=== PATIENT | female | born 1955 | race Caucasian/White ===

== ENCOUNTER 2016-11-13 13:01 | Emergency (ER) | payer OTHER ==
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
[2016-11-13 23:21] VITALS: BP 129/73
== END 2016-11-13 18:18 | disposition home or self-care (01) ==
LOC: ER 13:01
DX: B37.0 Candidal stomatitis (principal); M79.7 Fibromyalgia; F31.9 Bipolar disorder, unspecified; F17.210 Nicotine dependence, cigarettes, uncomplicated; Z90.710 Acquired absence of both cervix and uterus; T21.24XA Burn of second degree of lower back, initial encounter; X15.8XXA Contact with other hot household appliances, initial encounter

== ENCOUNTER 2017-01-06 14:17 | Emergency (ER) | payer OTHER ==
[2017-01-06] MEDS ORDERED: KETOROLAC TROMETHAMINE 30 MG/ML VIAL ONE (14:52)
[2017-01-06] MEDS ORDERED: KETOROLAC TROMETHAMINE 30 MG/ML VIAL IM ONE (14:53)
--- OUTSIDE RECORDS SUMMARY | 2017-01-06 15:52 | XMS REPORT | Continuity of Care Document ---
:1955 Author Organization [facility] ([facility]) Address [place] [place] [address] Phone [phone] Care Team Providers Name Role Phone Blue Acevedo Primary Care Provider [phone] Source Comments This disclosure is being made pursuant to the Care Everywhere program, applicable federal and state laws, and may not contain all informaitonavailable regarding this patient.[facility] ([facility]) Active Allergies and Adverse Reactions Allergen Noted Date Severity Reactions Comments Azithromycin 05/19/2012 Stomach Pain,OTHER,Rash Unable to sleep Methadone 05/19/2012 OTHER Unable to sleep Metronidazole 05/19/2012 Stomach Pain,OTHER "ache everywhere" Naproxen Loss of Consciousness,Seizure,Hy potension,Urticaria (Hives) Nortriptyline 05/19/2012 OTHER Unable to sleep Other Agent Urticaria environmental outdoor (Hives),Rhinorrhea allergies, "jg"- patient unsure of what medication it is Current Medications Prescription Sig. Disp. Refills Start Date End Date Status DULoxetine (CYMBALTA) Take 60 mg by Active 60 mg capsule mouth daily. pantoprazole 40 mg EC Take 40 mg by Active tablet mouth daily. topiramate 25 mg tablet Take 25 mg by Active mouth 2 times daily. oxybutynin 5 mg tablet Take 5 mg by Active mouth 2 times daily. metoclopramide 5 mg Take 5 mg by Active tablet mouth 2 times daily. tiZANidine 4 mg tablet Take 4 mg by Active mouth daily. busPIRone 7.5 mg tablet Take 1 tablet 30 tablet 11 12/28/2015 Active (7.5 mg total) by mouth 2 times daily. atorvastatin 10 mg Take 2 tablets 30 tablet 12/28/2015 Active tablet (20 mg total) by mouth daily. amitriptyline 50 mg Take 1 tablet 30 tablet 12/28/2015 Active tablet (50 mg total) by mouth at bedtime. gabapentin 300 mg 300 daily for 7 60 capsule 0 12/31/2015 Active capsule days, then 300 twice daily for 7 days, then 300 three times per day.. Active Problems Problem Noted Date Chronic fatigue 05/28/2012 Chronic pain due to injury 05/28/2012 Fibromyalgia 05/28/2012 Lumbago 05/21/2007 Nausea with vomiting 05/21/2007 Social History Tobacco Use Types Packs/Day Years Used Date Current Every Day Smoker Cigarettes 1 40 Smokeless Tobacco: Never Used Alcohol Use Drinks/Week oz/Week Comments No Last Filed Vital Signs Vital Sign Reading Time Taken Blood Pressure 138/88 12/28/2015 3:28 PM [employer] Pulse 94 12/28/2015 3:28 PM [employer] Temperature 36.8 C (98.2 F) 12/28/2015 3:28 PM [employer] Respiratory Rate - - Height 1.656 m (5' 5.19") 05/21/2007 7:43 AM CDT Weight 69.854 kg (154 lb) 12/28/2015 3:28 PM [employer] Body Mass Index 25.47 12/28/2015 3:28 PM [employer] Oxygen Saturation - - Plan of Care Health Maintenance Due Date Last Done Comments HCV Screening 1955 Hepatitis B Vaccine (1 of 3 - Primary Series) 1955 Tdap Vaccine 1968 Lipid Disorder Screening 1975 MMR Vaccine 1975 Td Vaccine 1975 Pneumococcal Vaccine (1 of 1 - PPSV23) 1976 Cervical Cancer Screening 1987 Mammogram 1997 Colonoscopy 2007 Influenza Vaccine: Seasonal (#1) 06/04/2016 Results from Last 3 Months Not on file
[2017-01-06] MEDS ORDERED: ORPHENADRINE CITRATE 30 MG/ML VIAL IM ONE (15:55)
[2017-01-06] MEDS ORDERED: oxyCODONE HCL/ACETAMINOPHEN 1 TAB TABLET PO ONE ×2 (15:55→15:57)
[2017-01-06] MEDS ORDERED: oxyCODONE HCL/ACETAMINOPHEN 1 TAB TABLET ONE (16:27)
[2017-01-06] MEDS ORDERED: ORPHENADRINE CITRATE 30 MG/ML VIAL ONE (16:27)
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
[2017-01-06 18:45] VITALS: BP 121/75
== END 2017-01-06 17:05 | disposition home or self-care (01) ==
LOC: ER 14:17
DX: R25.2 Cramp and spasm (principal); M62.830 Muscle spasm of back; M54.42 Lumbago with sciatica, left side; M54.41 Lumbago with sciatica, right side; F41.8 Other specified anxiety disorders; M79.7 Fibromyalgia; K21.9 Gastro-esophageal reflux disease without esophagitis; J44.9 Chronic obstructive pulmonary disease, unspecified

== ENCOUNTER 2017-02-03 17:34 | Emergency (ER) | payer OTHER ==
[2017-02-03 18:13] VITALS: BP 134/67
[2017-02-03] MEDS ORDERED: LIDOCAINE HCL 20 ML UDC PO ONE (18:38)
[2017-02-03] MEDS ORDERED: SUCRALFATE 1 G/10 ML UDC PO ONE (18:38)
[2017-02-03] MEDS ORDERED: MAG HYDROX/ALUMINUM HYD/SIMETH 30 ML UDC PO ONE (18:38)
--- OUTSIDE RECORDS SUMMARY | 2017-02-03 18:39 | XMS REPORT | Continuity of Care Document ---
:1955 Author Organization [facility] ([facility]) Address [address] [place] [address] Phone [phone] Care Team Providers Name Role Phone Blue Acevedo Primary Care Provider [phone] Source Comments This disclosure is being made pursuant to the Care Everywhere program, applicable federal and state laws, and may not contain all informaitonavailable regarding this patient.[facility] ([facility]) Active Allergies and Adverse Reactions Allergen Noted [...] Taken Blood Pressure 138/88 12/28/2015 3:28 PM [employer] Pulse 94 12/28/2015 3:28 PM [employer] Temperature 36.8 C (98.2 F) 12/28/2015 3:28 PM [employer] Respiratory Rate - - Height 1.656 m (5' 5.19") 05/21/2007 7:43 AM CDT Weight 69.854 kg (154 lb) 12/28/2015 3:28 PM [employer] Body Mass Index 25.47 12/28/2015 3:28 PM [employer] Oxygen Saturation - - Plan of Care [...]
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
== END 2017-02-03 18:45 | disposition left against medical advice (07) ==
LOC: ER 17:34
DX: R10.84 Generalized abdominal pain (principal); R07.2 Precordial pain; Z53.29 Procedure and treatment not carried out because of patient's decision for other reasons

== ENCOUNTER 2017-08-07 17:49 | Emergency (ER) | payer OTHER ==
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
[2017-08-07] MEDS ORDERED: GLUCAGON,HUMAN RECOMBINANT 1 MG VIAL IV ONE (18:17)
[2017-08-07] MEDS ORDERED: GLUCAGON,HUMAN RECOMBINANT 1 MG VIAL ONE (18:27)
[2017-08-07] MEDS ORDERED: LIDOCAINE HCL 20 ML UDC PO ONE (18:56)
[2017-08-07] MEDS ORDERED: MAG HYDROX/ALUMINUM HYD/SIMETH 30 ML UDC PO ONE (18:56)
[2017-08-07 18:57] VITALS: BP 114/80
== END 2017-08-07 19:11 | disposition home or self-care (01) ==
LOC: ER 17:49
DX: K22.9 Disease of esophagus, unspecified (principal); F41.9 Anxiety disorder, unspecified; F32.9 Major depressive disorder, single episode, unspecified; J44.9 Chronic obstructive pulmonary disease, unspecified; R56.9 Unspecified convulsions